=== PATIENT | female | born 1975 | race Caucasian/White ===

== ENCOUNTER 2019-01-31 00:44 | Emergency (ER) | payer OTHER ==
[~2019-01-31] VITALS: Ht 154.9 cm; Wt 59.0 kg
--- NOTE | 2019-01-31 00:59 | NUR ---
FINA FROM HOME. TO ER BED 9. AAOX4. NO RESP DISTRESS NOTED, BRREATHING EVEN AND UNLABORED. C/O DIZZYNESS 2ND TO ELEVATED BP. PT REPRTO HER BP @ 160/110 AT HOME. PT REPORTS BEING WEAK, DIZZY AND BLURRED VISION. PT ALSO REPORT PRESSURE AT ON HER NECK. MD AT BEDSIDE FOR EVAL. ORDERS RECEIVED, NOTED AND CARRIED OUT.
--- NOTE | 2019-01-31 01:05 | NUR ---
LAB AT BEDSIDE FOR BLOOD DRAW
[2019-01-31 01:12] LABS: BASOPHILS # (AUTO) 0.1 /CMM (0.0-0.2); BASOPHILS % (AUTO) 0.9 % (0.0-2.0); EOSINOPHILS % (AUTO) 1.8 % (0.0-6.0); HEMATOCRIT 39 % (33-45); HEMOGLOBIN 13.7 g/dL (11.5-14.8); LYMPHOCYTES # (AUTO) 2.5 /CMM (0.8-4.8); LYMPHOCYTES % (AUTO) 31.1 % (20.0-44.0); MEAN CORPUSCULAR HGB CONC 35 g/dl (31.0-36.0); MEAN CORPUSCULAR VOLUME 89 fL (82-100); MONOCYTES # (AUTO) 0.5 /CMM (0.1-1.30); MONOCYTES % (AUTO) 5.8 % (2.0-12.0); NEUTROPHILS # (AUTO) 4.8 /CMM (1.8-8.9); NEUTROPHILS % (AUTO) 60.4 % (43.0-81.0); PLATELET COUNT (AUTO) 197 /CMM (150-450); RED BLOOD CELL COUNT(AUTO) 4.39 MIL/uL (4.0-5.2)
[2019-01-31 01:18] LABS: CARBON DIOXIDE 26 mmol/L (21-32); CHLORIDE 106 mmol/L (98-107); CREATININE 0.8 mg/dL (0.6-1.3); GLUCOSE 112 mg/dL (74-106); POTASSIUM 3.4 mmol/L (3.5-5.1); SODIUM SERUM 141 mmol/L (136-145); UREA NITROGEN, BLOOD 16 mg/dL (7-18)
--- NOTE | 2019-01-31 01:56 | NUR ---
Patient discharged to home in stable condition. Written and verbal after care instructions given. Patient verbalizes understanding of instruction. Pt ambulatory with a steady gait
[2019-01-31 01:58] VITALS: BP 127/78
== END 2019-01-31 01:59 | disposition home or self-care (01) ==
LOC: ER 00:47
DX: I10 Essential (primary) hypertension (principal)
CPT/HCPCS: 36415; 80048-TC; 84484-TC; 85025-TC